=== PATIENT | male | born 1955 | race Caucasian/White ===

== ENCOUNTER 2022-03-24 09:23 | Emergency (ER) | payer MEDICARE, SELFPAY ==
[2022-03-24 09:30] VITALS: BP 133/87; PULSE 77; RESP 16; TEMP 35.9; O2SAT 93; BMI 28.5
--- NOTE | 2022-03-24 09:54 | CRLHL7_ITS ---
For Patients: As a result of the Century Cures Act, medical imaging exams and procedure reports are released immediately into your electronic medical record. You may view this report before your referring provider. If you have questions, please contact your health care provider. Indication: Cough, COPD. Technique: Chest 1 view. Comparison: 06/20/2021. Findings/Impression: Cardiovascular and mediastinum: Heart size and vasculature are normal in caliber and appearance. Lungs and pleural space: Left lower lobe pneumonia is present. Remainder of the lungs and pleural spaces are clear. Bones and soft tissues: No acute findings. Dictated by Won Chacon MD @ 03/24/2022 10:52:30 AM (Electronically Signed)
--- NOTE | 2022-03-24 09:54 | ED.GENADULT ---
HPI - General Adult General Time Seen by Provider: 09:55 Date Seen: 03/24/22 Chief complaint: Cough Stated complaint: Trouble breathing Time Seen by Provider: 03/24/22 09:28 Source: patient, RN notes reviewed and old records reviewed Mode of arrival: ambulatory History of Present Illness HPI narrative: This 66-year-old male is coming in with ongoing cough that is problematic in the setting of COPD. He was in Urgent Care last week and got prednisone and a Z-Riccardo. States that has not helped. This cough started after fishing trip to [place]. He states he was with people that smoked a lot. He is coughing, only able to sleep about 3-4 hours at a time at night and has to sleep more upright. He has Advair and uses albuterol. He pulls out albuterol out of his pocket without a spacer. He does not know what a spacer is. He has checked his temperature and has had no fevers. He has had no chest pain, no swelling of his legs, no calf pain. Slight sore throat which he thinks is from coughing so much. No nasal drainage noted. In review of his chart, was in Urgent Care on March 18. He reported he had had about a 1 week history of cough. He had taken 2- home COVID test. He was given prednisone 20 b.i.d. x5 days and a Z-Riccardo. Patient reports that this really has not helped. He does state though that he usually is on a longer prednisone taper. Prior to this episode, he had not used prednisone for a year. MD complaint: Cough, COPD Related Data Home Medications Medication Instructions Recorded Confirmed clopidogrel 75 mg tablet (Plavix) 75 mg PO QDAY 03/18/22 03/24/22 lisinopril 20 mg tablet 20 mg PO QDAY 03/18/22 03/24/22 metoprolol tartrate 50 mg tablet 50 mg PO QDAY 03/18/22 03/24/22 aspirin 81 mg capsule 81 mg PO DAILY 03/24/22 03/24/22 bupropion HCl 150 mg 24 hr tablet, 150 mg PO DAILY 03/24/22 03/24/22 extended release bupropion HCl 300 mg 24 hr tablet, 300 mg PO DAILY 03/24/22 03/24/22 extended release finasteride 5 mg tablet 5 mg PO DAILY 03/24/22 03/24/22 gabapentin 600 mg tablet 600 mg PO DAILY 03/24/22 03/24/22 metoprolol succinate 50 mg 50 mg PO DAILY 03/24/22 03/24/22 tablet,extended release 24 hr simvastatin 80 mg tablet 80 mg PO DAILY 03/24/22 03/24/22 Previous Rx's Medication Instructions Recorded albuterol sulfate 90 mcg/actuation 2 puff inhalation Q4H PRN 03/02/22 aerosol inhaler (Ventolin HFA) shortness of breath or wheezing #3 ea fluticasone 250 mcg-salmeterol 50 1 inh inhalation BID #3 ea 03/05/22 mcg/dose blistr powdr for inhalation (Advair Diskus) azithromycin 250 mg tablet See Rx Instructions PO .COMPLEX #6 03/18/22 tabs doxycycline monohydrate 100 mg 100 mg PO BID #20 tabs 03/24/22 tablet prednisone 10 mg tablets in a dose See Rx Instructions PO .COMPLEX 03/24/22 pack #21 ea Allergies Allergy/AdvReac Type Severity Reaction Status Date / Time No Known Drug Allergies Allergy Verified 03/18/22 11:24 Review of Systems Status of ROS: Reports: 6 or more systems reviewed and unremarkable except as noted in History and below [facility] Medical History (Updated 03/24/22 @ 10:56 by Vivian Palma MD) COPD (chronic obstructive pulmonary disease) Coronary artery disease involving coronary bypass graft Hypertension Hypertension Social History Smoking Status: Current some day smoker What tobacco products do you use: cigarettes How often do you have a drink containing alcohol: monthly or less AUDIT-C Alcohol total score: 1 Non-prescribed substance use: denies use Exam Const: Vital Signs, click to edit/add: Vital Signs - 24 hr 03/24/22 09:30 03/24/22 10:38 Temperature 96.6 F L Pulse Rate [Pulse Oximeter] 77 Respiratory Rate 16 20 Blood Pressure [Ri ght Upper Arm] 133/87 Pulse Oximetry 93 95 Oxygen Delivery Me thod Room Air Room Air 66-year-old male sitting up on the edge of the bed, able to speak in complete sentences. No coughing while I am with him. Voice is normal, not hoarse. Review of the pulse oximeter shows he is oxygenating in the mid 93-94% on room air. Documenting provider has reviewed patient's vital signs: yes Common normals: no apparent distress, average body habitus, oriented x3, no limitations, healthy appearing, alert and well nourished General appearance: cooperative and comfortable HENMT: Common normals: normocephalic, head/scalp atraumatic, hearing grossly normal bilaterally and external ears normal Head and scalp: normocephalic and atraumatic External ear: external ears normal Eye: Common normals: PERRL, EOMs intact bilaterally, conjunctivae normal and no scleral icterus Conjunctiva: conjunctiva(e) normal Pupil: PERRL Neck & C-Spine: Common normals: full ROM, no lymphadenopathy, supple, no meningeal signs, no JVD and thyroid normal Thyroid: thyroid normal Resp: Common normals: normal respiratory effort, no retractions, no use of accessory muscles and clear to auscultation bilaterally Auscultation: clear to auscultation bilaterally Cardio: Common normals: no JVD, regular rate, regular rhythm, S1 normal heart sound, S2 normal heart sound, no gallops, no clicks and no murmurs Rate: regular rate Rhythm: regular rhythm Heart sounds: S1 normal and S2 normal Extremity: Other: No lower extremity edema, no calf tenderness. Neuro: Common normals: oriented x3 and gait normal Sensorium/orientation: alert Meningeal signs: no meningeal signs Speech: speech normal Course Course Hospital Course: Respiratory therapy did come down to the ED, will show patient had to use a spacer. Will proceed with a portable chest x-ray. Vital Signs Vital signs: Initial Vital Signs Temperature 96.6 F L 03/24/22 09:30 Temperature Source Temporal Artery Scan 03/24/22 09:30 Pulse Rate 77 03/24/22 09:30 Pulse Rhythm 03/24/22 09:30 Respiratory Rate 16 03/24/22 09:30 Blood Pressure 133/87 03/24/22 09:30 Blood Pressure Mean 102 03/24/22 09:30 Blood Pressure Position Sitting 03/24/22 09:30 Pulse Oximetry 93 03/24/22 09:30 Oxygen Delivery Method 03/24/22 09:30 Vital Signs Temperature 96.6 F L 03/24/22 09:30 Pulse Rate 77 03/24/22 09:30 Respiratory Rate 16 03/24/22 09:30 Blood Pressure 133/87 03/24/22 09:30 Pulse Oximetry 93 03/24/22 09:30 Oxygen Delivery Method 03/24/22 09:30 Temperature 96.6 F L 03/24/22 09:30 Pulse Rate 77 03/24/22 09:30 Respiratory Rate 20 03/24/22 10:38 Blood Pressure 133/87 03/24/22 09:30 Pulse Oximetry 95 03/24/22 10:38 Oxygen Delivery Method 03/24/22 10:38 Medical Decision Making Imaging Data Chest x-ray: Attestation: I have reviewed the pertinent imaging results. My impression: Portable chest x-ray on my preliminary read with an infiltrate on the left lower lobe. Radiologist's impression: Patient: KAILASH HILL Facility:?[facility] Patient ID:?[id number] Site Patient ID:?[id number]. Site :?[id number] Study:?XRay Chest -03/24/2022 10:27:04 AM Ordering Physician:Graeme Park Final Report: Indication: Cough, COPD. Technique: Chest 1 view. Comparison: 06/20/2021. Findings/Impression: Cardiovascular and mediastinum: Heart size and vasculature are normal in caliber and appearance. Lungs and pleural space: Left lower lobe pneumonia is present. Remainder of the lungs and pleural spaces are clear. Bones and soft tissues: No acute findings. Dictated by Won Chacon MD @ 03/24/2022 10:52:30 AM (Electronic Signature) Critical Care Time Critical Care Time Critical Care Time: No Discharge Plan Discharge Clinical Impression: Community acquired pneumonia, COPD (chronic obstructive pulmonary disease) Patient Disposition: Home, Self-Care Condition: Stable Instructions: How to Use a Metered-Dose Inhaler (ED), Community Acquired Pneumonia (ED) Additional Instructions: Take new prednisone taper as prescribed, recommend taking with food to protect her stomach. Start new oral antibiotic for documented pneumonia on the left side on your chest x-ray. Continue with her Advair baseline. Can use your albuterol as needed for cough/wheeze/shortness of breath. If you are worsening at any point with development of fevers, increased shortness of breath or difficulty breathing, feel you are becoming more ill, please return to the ER for further evaluation. Otherwise, make a clinic appointment for recheck with your primary care provider within the next 1-2 weeks. Use the spacer with your inhaler as it will help deliver the albuterol in the lungs. Activity Level: Activity as Tolerated Prescriptions: New prednisone 10 mg tablets,dose pack See Rx Instructions .ROUTE .COMPLEX Qty: 21 0RF Rx Instructions: orally per package directions doxycycline monohydrate 100 mg tablet 100 mg PO BID Qty: 20 0RF No Action azithromycin 250 mg tablet See Rx Instructions PO .COMPLEX Qty: 6 0RF Rx Instructions: For 250 mg dose pack: take 500 mg today (day 1), then 250 mg for 4 days (days 2-5) PO lisinopril 20 mg tablet 20 mg PO QDAY metoprolol tartrate 50 mg tablet 50 mg PO QDAY clopidogrel [Plavix] 75 mg tablet 75 mg PO QDAY bupropion HCl 150 mg tablet extended release 24 hr 150 mg PO DAILY bupropion HCl 300 mg tablet extended release 24 hr 300 mg PO DAILY finasteride 5 mg tablet 5 mg PO DAILY metoprolol succinate 50 mg tablet extended release 24 hr 50 mg PO DAILY simvastatin 80 mg tablet 80 mg PO DAILY aspirin 81 mg capsule 81 mg PO DAILY gabapentin 600 mg tablet 600 mg PO DAILY albuterol sulfate [Ventolin HFA] 90 mcg/actuation HFA aerosol inhaler 2 puff inhalation Q4H PRN (Reason: shortness of breath or wheezing) Qty: 3 3RF fluticasone propion-salmeterol [Advair Diskus] 250-50 mcg/dose blister with device 1 inh inhalation BID Qty: 3 3RF Follow Up/Referrals: Maru Ellsworth MD [Primary Care Provider] - Stand Alone Forms: IMedExchange Info Instructions
--- OUTSIDE RECORDS SUMMARY | 2022-03-24 10:31 | XMS_ITS | Clinical Summary ---
:1955 Author Organization [facility] [place] [address] Care Team Providers Name Role Phone Maru Ellsworth MD Primary Care Provider Allergies No known active allergies Medications Medication Sig Dispensed Refills Start Date End Date Status TOPROL XL 50 MG 24 HR take 1 tablet 0 Active TAB (50mg) by oral route once daily ASPIRIN 325 MG TAB one daily 0 A ctive ATORVASTATIN 40 MG 40 mg Oral AT 30 0 01/18/2006 Active TAB BEDTIME NITROGLYCERIN 0.4 MG 0.4 mg Sublingual 30 0 01/18/2006 Active SUBLINGUAL TAB EVERY 5 MINUTES NEEDED LISINOPRIL 10 MG TAB take 1 tablet (10 0 Active mg) by oral route once daily CLOPIDOGREL 75 MG TAB 75 mg Oral/NG Tube 30 11 07/05/200 8 Active EVERY DAY multivitamin-folic Take 1 tablet by 0 04/01/2012 Active acid 0.4 mg (MULTIPLE mouth once daily. VITAMIN) tablet celecoxib (CELEBREX) Take 1 capsule by 0 07/30/2012 Active 200 mg capsule mouth 2 times daily with meals. escitalopram oxalate TAKE 1 AND 1/2 135 tablet 3 04/05/2015 Active (LEXAPRO) 20 mg TABLETS ONCEDAILY tabletIndications: Recurrent major depression in remission (HC) buPROPion (WELLBUTRIN TAKE 1 TABLET 90 tablet 3 04/05/2015 Active XL) 150 mg EVERY MORNINGWITH Extended-Release THE 300MG TABLET tabletIndications: Recurrent major depression in remission (HC) buPROPion (WELLBUTRIN TAKE 1 TABLET 90 tablet 3 04/05/2015 Active XL) 300 mg EVERY MORNING WITH Extended-Release THE WELLBUTRIN XL tabletIndications: 150MG TABLET Recurrent major depression in remission (HC) LORazepam (ATIVAN) Take 1/2 to 1 60 tablet 1 04/05/2015 Active 0.5 mg tablet up to three tabIndications: times daily for Recurrent major acute anxiety depression in remission (HC) amoxicillin-clavulana 0 05/05/2016 Active te 875-125 mg tablet (AUGMENTIN) HYDROcodone-acetamino 0 05/05/2016 Active phen, 5-325 mg, (NORCO) per tablet Active Problems Problem Noted Date Hematuria, microscopic 05/07/2016 Benign non-nodular prostatic hyperplasia without lower urinary tract 05/07/2016 symptoms Recurrent major depression in remission 07/28/2012 Coronary atherosclerosis of unspecified type of vessel , [place] or graft 07/04/2007 Essential hypertension, benign 07/04/2007 Personal history of tobacco use, presenting hazards to health 07/04/2007 Coronary atherosclerosis of unspecified type of vessel , [place] or graft 01/12/2006 Overview: 3 vessel CAD by angio mildly decreased LVF EF 45-50% 01/14/06 CABGx3 VÁSQUEZ to LAD veins to PD A and OM Other and unspecified hyperlipidemia 01/12/2006 Overview: Last Lipids Chol:[id number] T HDL:2808 LDL:07395 Unspecified essential hypertension 01/11/2006 Tobacco use disorder 01/11/2006 Chest pain, unspecified 01/11/2006 Resolved Problems Problem Noted Date Resolved Date Major depression, recurrent 11/18/2009 07/28/2012 Social History Tobacco Use Types Packs/Day Years Used Date Current Some Day Smoker Cigarettes Smokeless Tobacco: Never Used Tobacco Cessation: Counseling Given: Yes Alcohol Use Standard Drinks/Week Comments No 0 (1 standard drink = 0.6 oz pure alcoho l) Sex Assigned at Date Recorded Not on file Obstetrics History Last Filed Vital Signs Vital Sign Reading Time Taken Comments Blood Pressure 126/77 05/07/2016 8:01 AM [employer] Pulse 62 05/07/2016 8:01 AM [employer] Temperature 37.1 ??C (98.8 ??F) 04/01/2012 9:12 AM CDT Respiratory Rate 18 05/07/2016 8:01 AM [employer] Oxygen Saturation 98% 04/05/2015 2:51 PM CDT Inhaled Oxygen Concentration - - Weight 99.7 kg (219 lb 11.2 oz) 05/07/2016 8:01 AM [employer] Height 183.5 cm (6' 0.24) 09/24/2013 2:56 PM CDT Body Mass Index 29.6 09/24/2013 2:56 PM CDT Plan of Treatment Health Maintenance Due Date Last Done Comments COVID-19 vaccine series (#1) 05/11/1956 Tdap 1965 Depression screening for age 12+ 1966 BMI (ht and wt on same day) for age 18+ 1972 Hepatitis C screening for age 18-79 1972 Tetanus booster 1974 Colonoscopy through age 75 11/10/1999 Zoster (shingles) series for age 50+ (1 of 2) 2004 Lipids for age 45-75 01/11/2011 01/11/2006 Pneumococcal series for age 65+ (1 - PCV) 11/10/2019 Influenza for age 65+ 02/08/2022 Results Not on filefrom Last 3 Months Insurance Payer Benefit Plan / Subscriber ID Effective Dates Phone Addre ss Type Group UCARE MR UCARE MEDICARE [id number] 2019-Present [address] [place] [address] (Home) [place], [place] [phone] (Work) Advance Directives Latest Code Status on File Code Status Date Activated Date Inactivated Comments Full Code 01/14/2006 11:37 AM 01/18/2006 5:21 PM Full Code 01/12/2006 9:34 AM 01/14/2006 11:37 AM Full Code 01/11/2006 9:39 AM 01/12/2006 9:34 AM Care Teams Campus Administrator Relationship Specialty Start Date End Date Maru Ellsworth MD PCP - General Internal Medicine 11/28/[address] [place] [address] [place] [address]
[2022-03-24 10:38] VITALS: RESP 20; O2SAT 95
[2022-03-24 11:06] VITALS: BP 129/99; PULSE 83; RESP 16; TEMP 35.9
== END 2022-03-24 11:07 | disposition home or self-care (01) ==
PROVIDERS: Emergency Provider Family Medicine; PCP Internal Medicine
DX: J18.9 Pneumonia, unspecified organism (principal); J44.9 Chronic obstructive pulmonary disease, unspecified
CPT/HCPCS: 71045; 94664; 99283; 99284

== ENCOUNTER 2022-06-13 09:38 | Outpatient (CLI) | payer MEDICARE, SELFPAY ==
--- NOTE | 2022-06-13 10:15 | CRLHL7_ITS ---
For Patients: As a result of the Century Cures Act, medical imaging exams and procedure reports are released immediately into your electronic medical record. You may view this report before your referring provider. If you have questions, please contact your health care provider. Indication: ASYMMETRIC HEARING LOSS Technique: Brain and temporal bone MRI with contrast. The following sequences were obtained: DWI and ADC mapping sequences. Sagittal T1 weighted sequence. Axial FLAIR and T2 weighted sequences of the whole brain. 3D T2-weighted high resolution sequence of the temporal bones. Thin section T1 weighted axial and coronal pre-contrast and post-contrast sequences of the temporal bones. 3D T1 weighted post-contrast sequence of the whole brain. 15 cc Dotarem gadolinium based contrast agent was used. Comparison: None Findings: No diffusion abnormalities. No evidence of recent or prior hemorrhage. No mass effect. The hernandez and white matter are normal in signal intensity. Multiple scattered foci of T2 prolongation in the supratentorial subcortical and periventricular matter nonspecific but typical for chronic microangiopathy changes. The sella turcica, its contents and adjacent structures appear normal. All the major intracranial vascular structures demonstrate normal flow-related signal voids and intraluminal enhancement. The inner ears, internal auditory canals, cerebellopontine angle cisterns, cerebellum, brainstem and temporal lobes bilaterally are normal in appearance. No vessel frankly impinges upon the 7th/8th cranial nerve complexes. There is no mass or pathologic enhancement involving the 7th or 8th cranial nerves on either side. The orbital contents are normal. No marrow signal abnormality. The paranasal sinuses and mastoid air cells are unremarkable. The scalp and other imaged soft tissue structures are normal in appearance. Impression: 1. No acute intracranial abnormality. 2. Scattered small signal abnormalities in the supratentorial white matter nonspecific but typical for chronic microangiopathy changes. 3. Unremarkable MRI of the internal auditory canals, cerebellopontine angles, and temporal bone structures. Dictated by Nima Bejarano MD @ 06/13/2022 12:08:04 PM (Electronically Signed)
== END 2022-06-13 09:39 | disposition home or self-care (01) ==
PROVIDERS: PCP Internal Medicine; Visit Provider Otolaryngology
DX: H91.8X9 Other specified hearing loss, unspecified ear (principal); G93.9 Disorder of brain, unspecified
CPT/HCPCS: 70553; A9575

== ENCOUNTER 2022-12-14 09:11 | Outpatient (CLI) | payer MEDICARE, SELFPAY ==
--- NOTE | 2022-12-14 10:11 | W.ANESCHARGE ---
Anesthesia Charges Start Date/Time Anesthesia Start Date: 12/14/22 Anesthesia Start Time: 09:45 Stop Date/Time Anesthesia Stop Date: 12/14/22 Anesthesia Stop Time: 10:08
== END 2022-12-14 09:12 | disposition home or self-care (01) ==
LOC: OP CLINIC 09:12
PROVIDERS: PCP Internal Medicine; Visit Provider Internal Medicine
DX: Z86.010 Personal history of colon polyps (principal); K57.30 Diverticulosis of large intestine without perforation or abscess without bleeding
CPT/HCPCS: 00812; 45378; J2704

== ENCOUNTER 2022-12-21 07:02 | Outpatient (CLI) | payer MEDICARE, SELFPAY ==
--- NOTE | 2022-12-21 07:15 | CRLHL7_ITS ---
For Patients: As a result of the Century Cures Act, medical imaging exams and procedure reports are released immediately into your electronic medical record. You may view this report before your referring provider. If you have questions, please contact your health care provider. INDICATION: Fatty liver COMPARISON: none TECHNIQUE: Real time earl scale imaging and color Doppler analysis was performed of the right upper quadrant. FINDINGS: The patient`s liver is of normal size and has mildly coarsened/increased echogenicity. There is a normal appearance of the hepatic IVC and proximal abdominal aorta. There is no evidence of ascites. The gallbladder is of normal size and there is no evidence of intraluminal stones or sludge. The gallbladder wall measures 2.6 mm in thickness. The common bile duct is of normal size and measures 3.3 mm in diameter at the level of the alexia hepatis. The visualized pancreas appears normal. There is no evidence of a stone or hydronephrosis within the right kidney. The right kidney measures 12.6 cm in length. IMPRESSION: Diffuse hepatic steatosis. Dictated by Nima Schwarz MD @ 12/21/2022 9:08:03 AM (Electronically Signed)
--- NOTE | 2022-12-21 09:00 | CRLHL7_ITS ---
For Patients: As a result of the Cures Act, medical imaging exams and procedure reports are released immediately into your electronic medical record. You may view this report before your referring provider. If you have questions, please contact your health care provider. INDICATION: Lung cancer screening. History of smoking. High risk patient with greater than 50 pack-year smoking history. TECHNIQUE: Low-dose lung cancer screening non-contrast CT chest. Dose reduction techniques were used. COMPARISON: CT urogram 01/22/2017 FINDINGS: NODULES: None. LUNGS AND PLEURA: Emphysema. No infiltrate. MEDIASTINUM: No enlarged lymph nodes. Postop changes CABG. CORONARY ARTERY CALCIFICATION: Postop changes. LIMITED UPPER ABDOMEN: Small bilateral adrenal adenomas are similar. MUSCULOSKELETAL: Degenerative changes. No fracture. IMPRESSION: Negative for lung cancer screening purposes. LUNG-RADS CATEGORY: 1: Negative. RADIOLOGIST RECOMMENDATION: Continue annual screening with low-dose CT chest in 12 months. Please note that all CT scans at this facility use dose modulation, iterative reconstruction, and/or weight-based dosing when appropriate to reduce radiation dose to as low as reasonably achievable. Dictated by Nima Schwarz MD @ 12/21/2022 11:17:33 AM (Electronically Signed)
== END 2022-12-21 07:03 | disposition home or self-care (01) ==
LOC: US 07:03
PROVIDERS: PCP Internal Medicine; Visit Provider Internal Medicine
DX: Z12.2 Encounter for screening for malignant neoplasm of respiratory organs (principal); K76.0 Fatty (change of) liver, not elsewhere classified
CPT/HCPCS: 71271; 76705

== ENCOUNTER 2023-12-23 07:40 | Outpatient (CLI) | payer MEDICARE, OTHER, SELFPAY ==
--- OUTSIDE RECORDS SUMMARY | 2023-12-23 07:42 | XMS_ITS | Clinical Summary ---
Author Organization [employer] [facility] Address [place], [place] [address] Care Team Providers Care Conservation Policy Analyst Name Role Phone Maru Ellsworth MD Primary Care Provider [phone] Allergies No known active allergies Medications Medication Sig Dispensed Refills Start Date End Date Status TOPROL XL 50 MG 24 HR TAB take 1 tablet (50mg) by oral route once daily 0 Active ASPIRIN 325 MG TAB one daily 0 Active ATORVASTATIN 40 MG TAB 40 mg Oral AT BEDTIME 30 0 01/18/2006 Active NITROGLYCERIN 0.4 MG SUBLINGUAL TAB 0.4 mg Sublingual EVERY 5 MINUTES NEEDED 30 0 01/18/2006 Active LISINOPRIL 10 MG TAB take 1 tablet (10 mg) by oral route once daily 0 Active CLOPIDOGREL 75 MG TAB 75 mg Oral/NG Tube EVERY DAY 30 11 07/05/2007 Active multivitamin-folic acid 0.4 mg (MULTIPLE VITAMIN) tablet Take 1 tablet by mouth once daily. 0 04/01/2012 Active celecoxib (CELEBREX) 200 mg capsule Take 1 capsule by mouth 2 times daily with meals. 0 07/30/2012 Active escitalopram oxalate (LEXAPRO) 20 mg tabletIndications: Recurrent major depression in remission (HC) TAKE 1 AND 1/2 TABLETS ONCEDAILY 135 tablet 3 04/05/2015 Active buPROPion (WELLBUTRIN XL) 150 mg Extended-Release tabletIndications: Recurrent major depression in remission (HC) TAKE 1 TABLET EVERY MORNINGWITH THE 300MG TABLET 90 tablet 3 04/05/2015 Active buPROPion (WELLBUTRIN XL) 300 mg Extended-Release tabletIndications: Recurrent major depression in remission (HC) TAKE 1 TABLET EVERY MORNING WITH THE WELLBUTRIN XL 150MG TABLET 90 tablet 3 04/05/2015 Active LORazepam (ATIVAN) 0.5 mg tabIndications:Rec urrent major depression in remission (HC) Take 1/2 to 1 tablet up to three times daily for acute anxiety 60 tablet 1 04/05/2015 Active amoxicillin-clavul anate 875-125 mg tablet (AUGMENTIN) 05/05/2016 Active HYDROcodone-acetam inophen, 5-325 mg, (NORCO) per tablet 05/05/2016 Active Active Problems Problem Noted Date Diagnosed Date Hematuria, microscopic 05/07/2016 Benign non-nodular prostatic hyperplasia without lower urinary tract symptoms 05/07/2016 Recurrent major depression in remission 07/28/19 13 Coronary atherosclerosis of unspecified type of vessel, [place] or graft 07/04/2007 Essential hypertension, benign 07/04/2007 Personal history of tobacco use, presenting hazards to health 07/04/2007 Coronary atherosclerosis of unspecified type of vessel, [place]oug[place] or graft 01/12/2006 Overview: 3 vessel CAD by angio mildly decreased LVF EF 45-50% 01/14/06 CABGx3 VÁSQUEZ to LAD veins to PDA and OM Other and unspecified hyperlipidemia 01/12/2006 Overview: Last Lipids Chol:[id number] T HDL:2808 LDL:02816 Unspecified essential hypertension 01/11/2006 Tobacco use disorder 01/11/2006 Chest pain, unspecified 01/11/2006 Resolved Problems Problem Noted Date Diagnosed Date Resolved Date Major depression, recurrent 11/18/2009 07/28/2012 Social History Tobacco Use Types Packs/Day Years Used Date Smoking Tobacco: Some Days Cigarettes Smokeless Tobacco: Never Tobacco Cessation:Counseling Given: Yes Alcohol Use Standard Drinks/Week Comments No 0 (1 standard drink = 0.6 oz pur e alcohol) Social Connections Answer Date Recorded Frequency of Communication with Friends and Fami ly Not on file 06/10/2021 Financial Resource Strain Answer Date R ecorded Difficulty of Paying Living Expenses Not on file 06/10/2021 Difficulty of Paying Living Expenses Not on file 06/10/2021 Sex and Gender Information Value Date Recorded Sex Assigned at Not on file Gender Identity Not on file Sexual Orientation Not on file Obstetrics History Last Filed Vital Signs Vital Sign Reading Time Taken Comments Blood Pressure 126/77 05/07/2016 8:01 AM BUGGY RUNNER Pulse 62 05/07/2016 8:01 AM BUGGY RUNNER Temperature 37.1 ??C (98.8 ??F) 04/01/2012 9:12 AM CD T Respiratory Rate 18 05/07/2016 8:01 AM BUGGY RUNNER Oxygen Saturation 98% 04/05/2015 2:51 PM CDT Inhaled Oxygen Concentration - - Weight 99.7 kg (219 lb 11.2 oz) 05/07/2016 8:01 AM BUGGY RUNNER Height 183.5 cm (6' 0.24) 09/24/2013 2:56 PM CD T Body Mass Index 29.6 09/24/2013 2:56 PM CDT Plan of Treatment Health Maintenance Due Date Last Done Comments Tdap 1965 Depression screening for age 12+ 1966 BMI (ht and wt on same day) for age 18+ 1972 Hepatitis C screening for age 18-79 1972 Tetanus booster 1974 Colonoscopy through age 75 11/10/1999 Zoster (shingles) series for age 50+ (1 of 2) 11/10/19 05 Lipids for age 45-75 01/11/2011 01/11/2006 Pneumococcal series for age 65+ (1 of 1 - PCV) 020 COVID-19 vaccine series (1 - 2022-24 season) 3 Influenza for age 65+ 02/09/2024 Procedures Procedure Name Priority Date/Time Associated Diagnosis Comments LIPID PANEL STAT 01/11/2006 10:10 AM CDT from Last 3 Months or Most Recently Relevant to Health Maintenance Results * (ABNORMAL) Lipid Panel (01/11/2006 10:10 AM CDT) CHOLESTEROL,TOTAL 215(H) 110 - 199 mg/dL [facility] TRIGLYCERIDES 173(H) 40 - 149 mg/dL [facility] HDL CHOLESTEROL 28(L) >40 mg/dL [facility] CHOL/HDL RATIO 7.68(H) <4.51 [facility] LDL CHOLESTEROL 152(H) <131 mg/dL [facility] PATIENT STATUS Fasting [facility] Blood specimen (specimen) BLOOD SPECIMEN / Unknown 01/11/2006 10:10 AM CDT 01/11/2006 9:39 AM CDT Marie John [employer] [facility]MI[facility] [place]NAL ZIP [address] [address] from Last 3 Months or Most Recently Relevant to Health Maintenance Advance Directives * Full Code (Latest Code Status on File) Date Activated Date Inactivated Comments 01/14/2006 11:37 AM 01/18/2006 5:21 PM * Full Code Date Activated Date Inactivated Comments 01/12/2006 9:34 AM 01/14/2006 11:37 AM * Full Code Date Activated Date Inactivated Comments 01/11/2006 9:39 AM 01/12/2006 9:34 AM Care Teams Conservation Policy Analyst Relationship Specialty Start Date End Date Maru Ellsworth MD [address] [place] [address] PCP - General Internal Medicine 05/07/16
--- NOTE | 2023-12-23 08:00 | CRLHL7_ITS ---
For Patients: As a result of the Century Cures Act, medical imaging exams and procedure reports are released immediately into your electronic medical record. You may view this report before your referring provider. If you have questions, please contact your health care provider. INDICATION: Lung cancer screening. History of smoking. TECHNIQUE: Low-dose lung cancer screening non-contrast CT chest. Dose reduction techniques were used. COMPARISON: 12/21/[address] FINDINGS: NODULES: None. LUNGS AND PLEURA: Normal. MEDIASTINUM: Normal. CORONARY ARTERY CALCIFICATION: CABG. LIMITED UPPER ABDOMEN: Normal. MUSCULOSKELETAL: Sternotomy. IMPRESSION: 1. Negative for lung cancer screening purposes. LUNG-RADS CATEGORY 1: Negative. Continue annual screening with low-dose CT chest in 12 months. Please note that all CT scans at this facility use dose modulation, iterative reconstruction, and/or weight-based dosing when appropriate to reduce radiation dose to as low as reasonably achievable. Dictated by True Navarro MD @ 12/24/2023 10:20:15 AM (Electronically Signed)
== END 2023-12-23 07:41 | disposition home or self-care (01) ==
LOC: CT 07:41
PROVIDERS: PCP Internal Medicine; Visit Provider Internal Medicine
DX: Z12.2 Encounter for screening for malignant neoplasm of respiratory organs (principal); Z87.891 Personal history of nicotine dependence
CPT/HCPCS: 71271

== ENCOUNTER 2024-01-16 07:30 | Outpatient (CLI) | payer MEDICARE, OTHER, SELFPAY ==
--- OUTSIDE RECORDS SUMMARY | 2024-01-21 07:19 | XMS_ITS | Clinical Summary ---
Author Organization [employer] [facility] Address [place], [place] [address] Care Team Providers Care Land Law Examiner Name Role Phone Maru Ellsworth MD Primary Care Provider [phone]- [phone] Allergies No known active allergies Medications Medication [...] Coronary atherosclerosis of unspecified type of vessel, [place] or graft 07/04/2007 Essential hypertension, benign 07/04/2007 Personal history of tobacco use, presenting hazards to health 07/04/2007 Coronary atherosclerosis of unspecified type of vessel, [place] or graft 01/12/2006 Overview: 3 vessel CAD by angio mildly decreased LVF EF 45-50% 01/14/06 CABGx3 VÁSQUEZ to LAD veins to PDA and OM Other and unspecified hyperlipidemia 01/12/2006 Overview: Last Lipids Chol:70264 T HDL:2808 LDL:13837 Unspecified essential hypertension 01/11/2006 Tobacco use disorder [...] Comments Blood Pressure 126/77 05/07/2016 8:01 AM INSULATION APPLICATOR Pulse 62 05/07/2016 8:01 AM INSULATION APPLICATOR Temperature 37.1 ??C (98.8 ??F) 04/01/2012 9:12 AM CD T Respiratory Rate 18 05/07/2016 8:01 AM INSULATION APPLICATOR Oxygen Saturation 98% 04/05/2015 2:51 PM CDT Inhaled Oxygen Concentration - - Weight 99.7 kg (219 lb 11.2 oz) 05/07/2016 8:01 AM INSULATION APPLICATOR Height 183.5 cm (6' 0.24) 09/24/2013 2:56 [...] CDT) CHOLESTEROL,TOTAL 215(H) 110 - 199 mg/dL [facility] TRIGLYCERIDES 173(H) 40 - 149 mg/dL [facility] HDL CHOLESTEROL 28(L) >40 mg/dL [facility] CHOL/HDL RATIO 7.68(H) <4.51 [facility] LDL CHOLESTEROL 152(H) <131 mg/dL [facility] PATIENT STATUS Fasting [facility] Blood specimen (specimen) BLOOD SPECIMEN / Unknown 01/11/2006 10:10 AM CDT 01/11/2006 9:39 AM CDT Marie John [employer] [facility]MI[facility] INTERNAL ZIP [address] [address] from Last 3 Months or Most Recently Relevant to Health Maintenance Advance Directives * Full Code (Latest Code Status on File) Date Activated Date Inactivated Comments 01/14/2006 11:37 AM 01/18/2006 5:21 PM * Full Code Date Activated Date Inactivated Comments 01/12/2006 9:34 AM 01/14/2006 11:37 AM * Full Code Date Activated Date Inactivated Comments 01/11/2006 9:39 AM 01/12/2006 9:34 AM Care Teams Land Law Examiner Relationship Specialty Start Date End Date Maru Ellsworth MD [address] [place] [address] PCP - General Internal Medicine 05/07/16
== END 2024-01-16 07:31 | disposition home or self-care (01) ==
LOC: NFLDREF 01-21 07:18
PROVIDERS: PCP Internal Medicine; Referring Provider Internal Medicine; Visit Provider Internal Medicine
DX: R73.03 Prediabetes (principal); K76.0 Fatty (change of) liver, not elsewhere classified; I10 Essential (primary) hypertension; E78.5 Hyperlipidemia, unspecified
CPT/HCPCS: 80053; 80061; G0103

== ENCOUNTER 2024-09-03 07:06 | Outpatient (CLI) | payer MEDICARE, OTHER, SELFPAY ==
--- NOTE | 2024-09-03 07:15 | CRLHL7_ITS ---
For Patients: As a result of the Century Cures Act, medical imaging exams and procedure reports are released immediately into your electronic medical record. You may view this report before your referring provider. If you have questions, please contact your health care provider. Indication: Vertigo. Gait disorder. Technique: Multiplanar multisequence noncontrast MR images of the brain. Comparison: MRI brain 06/13/2022. Findings: Mild diffuse cerebral volume loss. No mass effect or midline shift. Stable scattered FLAIR hyperintensities in the supratentorial white matter, typical for mild chronic microvascular ischemic changes. No intracranial hemorrhage or pathologic extra-axial fluid collection. No diffusion restriction to suggest acute infarction. The major arterial flow voids of the skull base are preserved. Thinning of the ocular lenses. The paranasal sinuses are well aerated. Trace mastoid fluid bilaterally. Impression: 1. No acute intracranial abnormality. No significant change compared to the prior MRI. 2. Mild chronic microvascular ischemic changes and diffuse cerebral volume loss. Dictated by Sanchez Ordonez MD @ 09/03/2024 1:25:34 PM (Electronically Signed)
== END 2024-09-03 07:07 | disposition home or self-care (01) ==
LOC: MRI 07:07
PROVIDERS: PCP Internal Medicine; Visit Provider Internal Medicine
DX: R42 Dizziness and giddiness (principal); I67.82 Cerebral ischemia; R26.89 Other abnormalities of gait and mobility
CPT/HCPCS: 70551

== ENCOUNTER 2024-12-15 10:49 | Outpatient (CLI) | payer MEDICARE, OTHER, SELFPAY ==
--- NOTE | 2024-12-22 11:13 | W.PM.SLEEP ---
Sleep Study Details Details Interpreting Provider: Piter Date of Sleep Study: 12/15/24 Sleep Study Details: STUDY TYPE:? [Home unattended ? BMI:? 29.8 ORDERING PROVIDER:? Piter INDICATION:? Concern about sleep apnea ? SLEEP SUMMARY:? 419 minutes monitored RESPIRATORY SUMMARY:? AHI 5.4 per CMS guideline, 12.2 per rule 1A Low oxygen 80 32.7% of study oxygen less than 90% Snoring 100% PERIODIC LIMB MOVEMENTS OF SLEEP:? Not recorded CARDIAC:? Range 52-84, mean 63.3 beats per minute IMPRESSION:? Mild obstructive sleep apnea. Significant hypo oxygenation was noted RECOMMENDATION: For the sleep apnea treatment options include CPAP or dental appliance. Further cardiopulmonary evaluation may be indicated for the hypo oxygenation.
== END 2024-12-15 10:50 | disposition home or self-care (01) ==
LOC: SLEEP 10:50
PROVIDERS: PCP Internal Medicine; Visit Provider Otolaryngology
DX: G47.33 Obstructive sleep apnea (adult) (pediatric) (principal)
CPT/HCPCS: 95806

== ENCOUNTER 2025-02-16 13:55 | Outpatient (CLI) | payer MEDICARE, OTHER, SELFPAY | END 2025-02-16 13:56 | disposition home or self-care (01) | PROVIDERS: PCP Internal Medicine; Visit Provider Physician Assistant | DX: R42 Dizziness and giddiness (principal); Z12.5 Encounter for screening for malignant neoplasm of prostate; Z13.6 Encounter for screening for cardiovascular disorders; Z00.00 Encounter for general adult medical examination without abnormal findings; E66.9 Obesity, unspecified | CPT/HCPCS: 80048; 80053; 80061; 82306; 82607; G0103 ==

== ENCOUNTER 2025-02-23 14:11 | Outpatient (CLI) | payer MEDICARE, OTHER, SELFPAY | END 2025-02-23 14:12 | disposition home or self-care (01) | PROVIDERS: PCP Internal Medicine; Visit Provider Internal Medicine | DX: K76.0 Fatty (change of) liver, not elsewhere classified (principal) | CPT/HCPCS: 84450; 84460 ==

== ENCOUNTER 2025-03-04 07:36 | Outpatient (CLI) | payer MEDICARE, OTHER, SELFPAY ==
--- NOTE | 2025-03-04 08:00 | CRLHL7_ITS ---
For Patients: As a result of the Century Cures Act, medical imaging exams and procedure reports are released immediately into your electronic medical record. You may view this report before your referring provider. If you have questions, please contact your health care provider. INDICATION: Lung cancer screening. TECHNIQUE: Low-dose lung cancer screening non-contrast CT chest. Dose reduction techniques were used. COMPARISON: CT 12/21/2022 FINDINGS: NODULES: None. LUNGS AND PLEURA: Minimal subpleural reticulation could represent fibrosis. MEDIASTINUM: Calcified mediastinal and hilar nodes. Median sternotomy CORONARY ARTERY CALCIFICATION: Present. LIMITED UPPER ABDOMEN: Normal. MUSCULOSKELETAL: Normal. IMPRESSION: 1. Negative for lung cancer screening purposes. LUNG-RADS CATEGORY: 1: Negative. RADIOLOGIST RECOMMENDATION: Continue annual screening, if eligible, with low-dose CT chest in 12 months. Please note that all CT scans at this facility use dose modulation, iterative reconstruction, and/or weight-based dosing when appropriate to reduce radiation dose to as low as reasonably achievable. Dictated by Shana Ch MD @ 03/07/2025 1:28:30 PM (Electronically Signed)
== END 2025-03-04 07:37 | disposition home or self-care (01) ==
LOC: CT 07:38
PROVIDERS: PCP Internal Medicine; Visit Provider Internal Medicine
DX: Z12.2 Encounter for screening for malignant neoplasm of respiratory organs (principal); F17.210 Nicotine dependence, cigarettes, uncomplicated
CPT/HCPCS: 71271

== ENCOUNTER 2025-04-07 07:43 | Outpatient (CLI) | payer MEDICARE, OTHER, SELFPAY | END 2025-04-07 07:44 | disposition home or self-care (01) | LOC: NFLDREF 04-08 18:13 | PROVIDERS: PCP Internal Medicine; Referring Provider Internal Medicine; Visit Provider Internal Medicine | DX: K76.0 Fatty (change of) liver, not elsewhere classified (principal) | CPT/HCPCS: 84450; 84460 ==

== ENCOUNTER 2025-04-20 07:04 | Outpatient (CLI) | payer MEDICARE, OTHER, SELFPAY ==
--- NOTE | 2025-04-20 07:15 | CRLHL7_ITS ---
For Patients: As a result of the Century Cures Act, medical imaging exams and procedure reports are released immediately into your electronic medical record. You may view this report before your referring provider. If you have questions, please contact your health care provider. INDICATION: Abnormal levels of serum enzymes COMPARISON: 12/21/2022 TECHNIQUE: Real time earl scale imaging and color Doppler analysis was performed of the right upper quadrant. FINDINGS: Liver echotexture is diffusely increased. Liver measures 18.9 cm. No intrahepatic mass. There is a normal appearance of the hepatic IVC and proximal abdominal aorta. There is no evidence of ascites. The gallbladder is of normal size and there is no evidence of intraluminal stones or sludge. The gallbladder wall measures 2 mm in thickness. The common bile duct is of normal size and measures 3 mm in diameter at the level of the alexia hepatis. The visualized pancreas appears echogenic. There is no evidence of a stone or hydronephrosis within the right kidney. The right kidney measures cm in length. IMPRESSION: Hepatomegaly with hepatic steatosis. Normal gallbladder. This is not significantly changed. Dictated by Nima Schwarz MD @ 04/20/2025 8:32:03 AM (Electronically Signed)
== END 2025-04-20 07:05 | disposition home or self-care (01) ==
LOC: US 07:06
PROVIDERS: PCP Internal Medicine; Visit Provider Internal Medicine
DX: R74.8 Abnormal levels of other serum enzymes (principal); K76.0 Fatty (change of) liver, not elsewhere classified; R16.0 Hepatomegaly, not elsewhere classified
CPT/HCPCS: 76705

== ENCOUNTER 2025-04-29 10:15 | Outpatient (CLI) | payer MEDICARE, OTHER, SELFPAY | END 2025-04-29 10:16 | disposition home or self-care (01) | LOC: NFLDREF 05-05 02:11 | PROVIDERS: PCP Internal Medicine; Referring Provider Internal Medicine; Visit Provider Internal Medicine | DX: R74.8 Abnormal levels of other serum enzymes (principal); K76.0 Fatty (change of) liver, not elsewhere classified | CPT/HCPCS: 82390; 84450; 84460; 86038; 86039; 86704; 86706; 86803 ==